=== PATIENT | female | born 1995 | race Two or more races ===

== ENCOUNTER 2025-04-07 11:50 | Emergency (ER) | payer MEDICAID, SELFPAY ==
[2025-04-07 11:52] VITALS: BMI 37.6
[2025-04-07 12:32] VITALS: BP 132/81; PULSE 104; RESP 18; TEMP 37.5; O2SAT 100
--- NOTE | 2025-04-07 12:36 | XR_ITS ---
Examination: PA lateral chest 2 views TECHNIQUE: Upright PA lateral chest 2 views Date and time: 04/07/2021 1244 hours INDICATIONS: Shortness of breath chest pain beginning today FINDINGS: Normal heart size Lungs are clear. The osseous structures are intact IMPRESSION: No active disease
--- NOTE | 2025-04-07 12:36 | PD.EDRME ---
Rapid Medical Screening Exam RME Arrival date/time: 04/07/25 11:50 29-year-old female with no known medical history presents to the emergency room with a chief complaint of intermittent fevers, neck stiffness, cough congestion x 4 days I have greeted and performed a focused initial assessment of this patient. A comprehensive ED assessment and evaluation of the patient, analysis of all test results, and completion of the medical decision making process will be conducted by additional ED providers. Chief Complaint: Fever Vital signs: Vital Signs Temperature 99.5 F 04/07/25 12:32 Pulse Rate 104 H 04/07/25 12:32 Respiratory Rate 18 04/07/25 12:32 Blood Pressure 132/81 H 04/07/25 12:32 Pulse Oximetry (%) 100 04/07/25 12:32 Oxygen Delivery Method Room Air 04/07/25 12:32 Vital signs reviewed by provider: Yes
--- NOTE | 2025-04-07 12:51 | XR_ITS ---
Examination: CT brain head without contrast. 2-D sagittal coronal reconstructions Date and time of exam:April 07, 2025 1314 hours INDICATIONS: Head pressure stiff neck beginning 4 days ago CTDI: vol (mGy):51.6 DLP: (mGycm):935 Technique: Multiple CT axial sections of the brain have been obtained, 5 mm slice thickness. Contrast has not been administered. 2-D sagittal, coronal reconstructions have been obtained Low dose protocols were performed. One or more of the following dose reduction techniques were used; automated exposure control, adjustment of the mA and/or KV according to patient size, use of iterative reconstruction technique. Findings: No significant ventricular enlargement. Intra-axial or extra-axial hemorrhage density is not seen. No mass effect or midline shift Basal cisterns are not remarkable. Fourth ventricle is midline. Cranial vault intact. Impression: Negative for acute hemorrhage, mass effect or midline shift His symptoms persist, consider brain MRI follow-up, pre and postcontrast, to assess for meningeal enhancement
[2025-04-07 12:59] LABS: Collection Type, Urine Clean Catch
[2025-04-07 13:00] LABS: Lactate (Lactic Acid) 0.9 mMol/L (0.4-2.0)
[2025-04-07 13:02] LABS: Basophils # (Auto) 0.1 Thou/mm3 (0.0-0.2); Basophils % (Auto) 0 % (0-2.5); Eosinophils % (Auto) 0 % (0-10); Hematocrit 36.2 % (36.0-46.0); Hemoglobin 12.3 g/dL (12.0-16.0); Immature Granulocytes % (Auto) 0 % (0-0); Immature Granulocytes Auto 0.05 Thou/mm3 (0.00-0.00); Lymphocytes % (Auto) 13 % (10-50); Mean Corpuscular Hemoglobin 27.5 pg (25.0-35.0); Mean Corpuscular Volume 81 fL (80-100); Monocytes # (Auto) 1.1 Thou/mm3 (0.0-0.8); Monocytes % (Auto) 7 % (0-12); Neutrophils # (Auto) 12.9 Thou/mm3 (1.8-7.7); Neutrophils % (Auto) 80 % (37-80); Nucleated Red Blood Cell % 0 /100 WBC (0); Platelet Count 351 Thou/mm3 (140-440); RDW Standard Deviation 40.1 fL (36.4-46.3); Red Blood Count 4.47 Miln/mm3 (4.00-5.20); White Blood Count 16.2 Thou/mm3 (3.6-11.0)
[2025-04-07 13:06] LABS: Bacteria,Urine 4+; Bilirubin,Urine Negative (Negative); Blood,Urine 1+ (Negative); Clarity,Urine Clear (Clear/Hazy); Color,Urine Lt-Yellow (Lt Yel-Yel); Glucose, Urine Negative (Negative); Ketones,Urine Negative (Negative); Leukocyte Esterase,Urine Positive (Negative); Nitrite,Urine Positive (Negative); PH,Urine 6.5 (5.0-7.0); Protein,Urine Negative (Neg - Trace); RBC,Urine 8 /hpf (0-3); Specific Gravity,Urine 1.011 (1.001-1.035); Squamous Epithelial Cell,Urine 1 /hpf (0-5); Urobilinogen,Urine Negative mg/dL (0.0-1.0); WBC,Urine 18 /hpf (0-5)
[2025-04-07 13:27] LABS: Alanine Aminotransferase 22 U/L (10-49); Albumin, Serum 4.4 gm/dL (3.5-5.0); Albumin/Globulin Ratio 1.5 (1.2-2.2); Alkaline Phosphatase 93 U/L (46-116); Anion Gap 11 (7-16); BUN/Creatinine Ratio 11 Ratio (12-20); Bilirubin,Total 0.3 mg/dL (0.3-1.2); Blood Urea Nitrogen 9 mg/dL (9-23); Calcium 8.9 mg/dL (8.3-10.6); Calcium (Corrected) 8.9 mg/dL (8.5-10.1); Chloride 104 mMol/L (98-107); Creatinine (Component) 0.8 mg/dL (0.6-1.3); Estimated Creatinine Clearance 108.5 mL/min (>60); Glucose 94 mg/dL (74-106); Osmolality,Calculated 281 (275-295); Potassium 3.7 mMol/L (3.4-5.1); Procalcitonin 0.18 ng/ml (0.0-0.49); Sodium 142 mMol/L (136-145); Total Protein 7.4 gm/dL (5.7-8.2); eGFR > 60 See Note
[2025-04-07] MEDS: IBUPROFEN TAB 400 MG TABLET 800 MG PO (13:29)
--- NOTE | 2025-04-07 13:55 | PD.EDADULT ---
ED General RME/HPI General Chief complaint: Fever Stated complaint: VERY STIFF NECK, FEVER 102.0 THIS AM. SENT BY PCP. Arrival date/time: 04/07/25 11:50 RME / HPI RME / HPI narrative: 04/07/25 11:50 29-year-old female with no known medical history presents to the emergency room with a chief complaint of intermittent fevers, neck stiffness, cough congestion x 4 days I have greeted and performed a focused initial assessment of this patient. A comprehensive ED assessment and evaluation of the patient, analysis of all test results, and completion of the medical decision making process will be conducted by additional ED providers. DR. GRIGSBY MAIN ED EVALUATION: 29 year old female presents to the Emergency Department with complaint of fevers, chills, and body aches. Onset of symptoms 4 days. Patient reports a stiff neck but has no meningeal signs. No nausea or vomiting. No other symptoms reported at this time. PMHx: Denies any PMHx, daily medications, or known allergies. section. Social Hx: No tobacco, alcohol, or substance use. Related Data Allergies Allergy/AdvReac Type Severity Reaction Status Date / Time sulfisoxazole Allergy Mild rash Verified 04/07/25 11:54 Review of Systems Review of Systems Systems Reviewed: All systems reviewed, normal except as documented Narrative Review of Systems: Constitutional: POSITIVES: fevers, chills, and body aches Eyes: DENIES: loss of vision; Head/Ear/Nose: DENIES: loss of hearing. Throat: DENIES: dysphagia. Cardiovascular: DENIES: chest pain, dyspnea, or syncope. Respiratory: DENIES: shortness of breath; Gastrointestinal: DENIES: rectal bleeding or melena. Genitourinary: DENIES: dysuria (painful or difficult urination); Musculoskeletal: POSITIVES: stiff neck Skin: DENIES: rash; Neurological: DENIES: loss of function or movement; Psychiatric: DENIES: recent major life stressor, emotional problem, illicit drug use or abuse; Endocrinology: DENIES: weight change,; Hematologic/Lymphatic: DENIES: abnormal bruising. Allergic/Immunologic: DENIES: urticaria (hives). Past Medical History Past Medical History OTHER HISTORY: Positive Hospitalization (c section x3) and Chicken Pox Family History FAMILY HISTORY: Positive Family Reproductive Disorders and Family Surgery Surgical History SURGICAL: Positive Section (x3) OTHER SURGICAL HX: RIGHT OVARY REMOVAL Social History SMOKING STATUS: Never smoker SUBSTANCE USE: does not use ALCOHOL: Never ED Exam Narrative Physical exam: Physical Exam: General: The vital signs were reviewed. Alert awake smiling no distress the patient is non-toxic, in no apparent distress and appears healthy with a patent airway, no respiratory distress and has no apparent circulatory problems. Head & Scalp: Normocephalic, atraumatic. Face: Appears normal and is without lesions, deformity. Ears: Left external pinna appears normal. Right external pinna appears normal. Eyes: The sclera is anicteric. No obvious photophobia. The Left and Right Orbit/Lid/Conjunctiva appears normal without swelling, discoloration or injection. Nose: The nose is without deformity, discharge or tenderness; Throat: No nuchal rigidity moves head and neck freely complains of soreness in her neck muscles but generalized body aches also. Appears normal. The mucous membranes are pink and moist without exudates, redness or mass seen. The tongue appears normal. Neck: The neck is supple and no apparent mass or adenopathy. Chest: The chest wall is normal in size and symmetry and has no chest wall tenderness or crepitus. The patient displays normal ventilator effort without retractions, accessory muscle use and has adequate air movement bilaterally with no wheezes and no rales. Cardiovascular: Regular rate and rhythm; No murmurs, rubs, or gallops; Gastrointestinal: The abdomen appears normal. No obvious hernias or mass. The abdomen is soft and benign, non-distended, with no pain, no guarding and no rebound tenderness. Bowel sounds are present and normal sounding. No CVA tenderness. Genitourinary: Back/Spine: Normal inspection Extremities/Musculoskeletal/lymphatic: The bilateral upper and lower extremities are warm. There is no evidence of arterial insufficiency. There is no evidence of venous insufficiency/edema. The patient spontaneously moves bilateral upper and lower extremities with no pain and no limitation of movement. There is no apparent, injury or trauma. Skin: The skin is warm, dry and intact. No rashes. No petechia. No purpura. No abnormal bruising. The color is appropriate with no cyanosis. Mental status/Psychiatric: Mental status is appropriate for age. The patient has no apparent delusions, visual hallucinations, no apparent audible hallucinations. The patient has no apparent suicidal thoughts/ideation and no apparent homicidal thoughts/ideation. Neurological: The patient is awake, alert, interactive, cordial, cooperative and is oriented to name and situation. The patient follows commands and answers historical question with no impairment. There is no visual disturbance apparent. The pupils are equal and reactive bilaterally with normal eye movements and no diplopia The bilateral upper and lower extremities have normal strength, normal range of motion and normal functioning. The gait, station and balance appear to be baseline with no acute change Course Quality Measures none Orders Category Date Time Status Bedside COVID-19 Antigen Test NOW Care 04/07/25 12:59 Active Bedside Influenza A&B Antigen Test NOW Care 04/07/25 12:[address] head/brain wo con Stat Exams 04/07/25 12:51 Completed XR chest 2V Stat Exams 04/07/25 12:36 Completed Blood Culture (Lab) Stat Lab 04/07/25 12:49 Received CBC Stat Lab 04/07/25 12:54 Completed CMP [Comprehensive Metabolic Panel] Stat Lab 04/07/25 12:54 Completed Lactate (Lactic Acid) Stat Lab 04/07/25 12:54 Completed Procalcitonin Stat Lab 04/07/25 12:54 Completed UA [Urinalysis] Stat Lab 04/07/25 12:52 Completed Urine Culture Stat Lab 04/07/25 12:52 Received Ibuprofen Tab [Motrin Tab] Med 04/07/25 12:51 Discontinued 800 mg PO X1 ONE Vital Signs Vital signs: Vital Signs Temperature 99.5 F 04/07/25 12:32 Pulse Rate 104 H 04/07/25 12:32 Respiratory Rate 18 04/07/25 12:32 Blood Pressure 132/81 H 04/07/25 12:32 Pulse Oximetry (%) 100 04/07/25 12:32 Oxygen Delivery Method Room Air 04/07/25 12:32 Discharge Plan Plan Patient Disposition: HOME (Self Care) Prescriptions/Referrals Referrals: No Primary/Family,Physician [Primary Care Provider] - In 1 week Problem List Clinical Impression: Fever of unknown origin, Acute viral syndrome Patient/Caregiver Discharge Instructions Education Materials: ED Viral Syndrome (Adult) Additional Instructions: As we discussed the cause of your fever could be many things but most likely some viral illness. At this time I do not believe you have a kidney infection but if you are increasing in back pain on one side or the other urinary symptoms or getting worse please return for reevaluation as we have discussed at great length. Please drink plenty of clear liquids so you are producing good volumes of urine. You can use acetaminophen or ibuprofen to control fever and aches and pains. Print Language: Qatari [facility] Narrative [facility] hospital course: I, Kelsey Casillas, am scribing for and in the presence of Dr. Grigsby. Patient presents with fever body aches chills reports a stiff neck but has no meningeal signs there is no Kernig or Brudzinski sign. She is mentating well there is no nausea or vomiting her white count is 16.2 electrolytes are normal anion gap is 11 BUN 9 creatinine 0.8 lactic acid 0.9 total bilirubin AST are normal procalcitonin is negative urine analysis is a clean-catch specimen with an 1 squame and 4+ bacteria. She has no CVA tenderness clinically but with pyuria and no other obvious source makes me wonder if she is got an early John versus a viral illness that we are unable to diagnose. Note her COVID and influenza were both negative today head CT done was negative and chest x-ray was negative Patient's vital signs have improved after antipyretics. On recheck at 1510 hrs. she is feeling much better her neck is not bothering her she is got full range of motion. She is got no CVA tenderness. She is got no dysuria. She has had no nausea or vomiting. Patient presents with a minimal cough body aches fever chills fatigue no rigors and most likely this is some viral syndrome. Both COVID and influenza swabs were negative. Chest x-ray came back negative for any infiltrates. I had a long discussion about viral illness versus possible early pyelonephritis. Clinically to me this seems more viral and she knows to drink plenty of fluids take Tylenol ibuprofen to control fevers return if she is having CVA tenderness burning when she pees or getting worse and expect this to resolve in the next 2 to 3 days. Therefore we will not give any antibiotics at this time. Clinical Information Provided by patient Medical Records Reviewed [facility] Meds/Rx Considered, not Ordered Describe details: Antibiotics for theoretical possible pyelonephritis but presuming this is a viral illness and no further treatment other than antipyretics. Denies any PMHx, daily medications, or known allergies. section. Labs/Rad/Tests considered, not Ordered None Chronic Illness/Social Conditions which may negatively complicate care or outcome(s)-explain: None or not applicable EKG EKG not done Lab Interpretation Labs: see narrative above Imaging Imaging interpretation: see narrative above Radiology reports / interpretation(s): Procedure(s): CT head/brain wo con Accession Number(s): [id number] cc: Shan Noonan; Simone Evans MD; NO PRIMARY/FAMILY,PHYSICIAN~ Examination: CT brain head without contrast. 2-D sagittal coronal reconstructions Date and time of exam:April 07, 2025 1314 hours INDICATIONS: Head pressure stiff neck beginning 4 days ago CTDI: vol (mGy):51.6 DLP: (mGycm):935 Technique: Multiple CT axial sections of the brain have been obtained, 5 mm slice thickness. Contrast has not been administered. 2-D sagittal, coronal reconstructions have been obtained Low dose protocols were performed. One or more of the following dose reduction techniques were used; automated exposure control, adjustment of the mA and/or KV according to patient size, use of iterative reconstruction technique. Findings: No significant ventricular enlargement. Intra-axial or extra-axial hemorrhage density is not seen. No mass effect or midline shift Basal cisterns are not remarkable. Fourth ventricle is midline. Cranial vault intact. Impression: Negative for acute hemorrhage, mass effect or midline shift His symptoms persist, consider brain MRI follow-up, pre and postcontrast, to assess for meningeal enhancement Dictated By: Simone Evans MD Procedure(s): XR chest 2V Accession Number(s): [id number] cc: Seth Moore; Simone Evans MD; NO PRIMARY/FAMILY,PHYSICIAN~ Examination: PA lateral chest 2 views TECHNIQUE: Upright PA lateral chest 2 views Date and time: 04/07/2021 1244 hours INDICATIONS: Shortness of breath chest pain beginning today FINDINGS: Normal heart size Lungs are clear. The osseous structures are intact IMPRESSION: No active disease Dictated By: Simone Evans MD Medication Administration(s) Medication Administration History Discontinued Medications Ibuprofen (Ibuprofen Tab 400 Mg Tablet) 800 mg PO X1 ONE Stop: 04/07/25 12:52 Last Admin: 04/07/25 13:29 Dose: 800 mg Documented By: KVNG Diagnosis Differential diagnosis: Viral illness pyelonephritis Differential dx and/or dx ruled out: Patient has no other clinical issue other viral systemic illness Most likely dx, and/or detailed dx discussion: Viral syndrome, despite 3 days of fevers and chills he has no meningeal signs. He has only 18 white cells and I see no reason to treat this is a UTI or John at this time although it is theoretically possible more likely very remotely possible and patient understands the discussion knows return if getting worse. Dispositon Disposition: Discharge Home Disposition comments: Patient advised at great length knows return if getting worse.
[2025-04-07 14:17] VITALS: BP 134/84; PULSE 96; RESP 20; TEMP 37.5; O2SAT 100
--- NOTE | 2025-04-12 10:59 | PC.NURSE ---
PRESCRIPTION CALLED INTO [facility] ON . SPOKE W/ PHARMACIST JUAN CARLOS. INFORMED PT AND SHE WILL PICK IT UP.
== END 2025-04-07 16:25 | disposition home or self-care (01) ==
PROVIDERS: Nurse Practitioner Family; Emergency Provider Emergency Medicine
DX: B34.9 Viral infection, unspecified (principal); M43.6 Torticollis; R06.02 Shortness of breath; R07.9 Chest pain, unspecified
CPT/HCPCS: 36415; 70450; 71046; 80053; 81001; 83605; 84145; 85025; 87040; 87077; 87086; 87186; 87400; 87811; 99284; A9270